=== PATIENT | female | born 1945 | race Two or more races ===

== ENCOUNTER 2024-08-09 16:48 | Emergency (ER) | payer MEDICARE, OTHER, SELFPAY ==
[2024-08-09 17:19] VITALS: BP 102/61; PULSE 74; RESP 19; TEMP 36.6; O2SAT 92
[2024-08-09 17:49] VITALS: PULSE 90; RESP 18; O2SAT 91
[2024-08-09 17:54] VITALS: BMI 37.0
--- NOTE | 2024-08-09 17:57 | EKG_ITS ---
[facility] Test Date: 2024-08-09 Pat Name: ANDREA MERCEDES Department: Room: - Gender: Female Director Strategy: : 1945 Requested By: Yvon Green Order Number: [id number] Reading MD: Yvon Green Measurements Intervals [place] Rate: 81 P: 73 AL: 196 QRS: -2 QRSD: 105 T: 34 QT: 398 QTc: 462 Interpretive Statements SINUS RHYTHM WITH OCCASIONAL SUPRAVENTRICULAR PREMATURE COMPLEXES Compared to ECG 07/10/2024 14:16:51 Myocardial infarct finding no longer present /store/S0/[id number].pdf
--- NOTE | 2024-08-09 17:59 | EDNOTE_ITS ---
ED General RME/HPI General Chief complaint: Altered Mental Status Stated complaint: AMS Time Seen by Provider: 08/09/24 17:48 Arrival date/time: 08/09/24 16:48 RME / HPI RME / HPI narrative: 78-year-old female patient with significant history of liver cirrhosis, hypertension, came in with EMS for evaluation regarding generalized body weakness. Patient's been having worsening generalized body weakness, poor appetite, not eating, not drinking, for the last 3 weeks, getting worst. Today patient was noted to be having dizziness. Patient told me that been taking lisandro seltzer for abdominal discomfort for several days now. Described as burning- like sensation, severity mild. Denies any vomiting. Patient noticed black- colored stool for several days now. Patient was also noted to be having difficulty ambulating due to generalized body weakness for several weeks now. According to the family, patient is needing moderate assist even going to the restroom. Denies any other complaints. No medications taken prior to arrival. Related Data Home Medications ?Medication ?Instructions ?Recorded ?Confirmed lisinopril 10 mg tablet 10 mg PO DAILY 07/10/24 07/10/24 atorvastatin 20 mg tablet 20 mg PO QDAY 07/11/24 07/11/24 cholecalciferol (vitamin D3) 50 50 mcg PO QDAY 07/11/24 07/11/24 mcg (2,000 unit) capsule (Vitamin D3) hydrochlorothiazide 12.5 mg tablet 12.5 mg PO QAM 07/11/24 07/11/24 paroxetine HCl 10 mg tablet 10 mg PO QDAY 07/11/24 07/11/24 vibegron 75 mg tablet (Gemtesa) 75 mg PO QDAY 07/11/24 07/14/24 Previous Rx's ?Medication ?Instructions ?Recorded pantoprazole 40 mg tablet,delayed 40 mg PO QDAY 30 days #30 tabs 07/15/24 release Allergies Allergy/AdvReac Type Severity Reaction Status Date / Time No Known Allergies Allergy Verified 01/02/24 12:05 Review of Systems Review of Systems Narrative Review of Systems: Review of system reviewed and within normal limits except mentioned in HPI ED Exam Narrative Physical exam: VITAL SIGNS: Reviewed. GENERAL APPEARANCE: Alert and interactive, follows commands, no acute distress, HEAD AND FACE: Non-traumatic. ENT: PERRL, pale conjunctiva, eyelid no trauma, Mucous membrane dry NECK: Supple, nontender, no nuchal rigidity. CHEST: No tenderness, no crepitus, no paradoxical movement, no retractions. LUNGS: Clear, well ventilated, symmetric, no rales, no wheezing, no ronchi, no stridor, good breath sounds bilaterally. HEART: Regular rate, regular rhythm, no murmur, no gallops. ABDOMEN: Soft, positive bowel sounds, nondistended, no guarding, nontender, no rebound, no masses, RECTAL: Rectal exam was done by me, and significant dark-colored stool noted on the examining finger, strongly positive occult blood. GENITAL: Deferred. NEUROLOGICAL: Gross motor function intact sensory function intact, Appropriate for age. MUSCULOSKELETAL: low back nontender, full range of motion. EXTREMITIES: Nontender, full range of motion. SKIN: Color pale dry, no rash, no lacerations, no abrasions, no contusions. LYMPHATICS: Deferred. Course Quality Measures none Orders Category Date Time Status EKG (ED ONLY) *Do not use* NOW Care 08/09/24 17:57 Completed Occult Blood,Stool (Nursing) NOW Care 08/09/24 17:57 Active Referral Physical Therapy Stat Cons 08/09/24 20:38 Active EKG (ED Only) Stat Exams 08/09/24 17:57 Draft XR chest 1V Stat Exams 08/09/24 17:59 Completed Ammonia Stat Lab 08/09/24 18:25 Completed CBC Stat Lab 08/09/24 18:25 Completed CMP [Comprehensive Metabolic Panel] Stat Lab 08/31/24 23:09 Ordered Comprehensive Metabolic Panel Stat Lab 08/09/24 18:25 Completed Lactate (Lactic Acid) Stat Lab 08/09/24 18:25 Completed Partial Thromboplastin Time Stat Lab 08/09/24 18:25 Completed Prothrombin Time with INR Stat Lab 08/09/24 18:25 Completed Type and Screen Stat Lab 08/09/24 18:25 Completed Urinalysis Stat Lab 08/09/24 18:06 Completed Octreotide Acet Inj [SandoSTATIN Inj] Med 08/09/24 18:05 Discontinued 50 mcg IV X1 ONE POTASSIUM CHL 10 mEq IVPB [Kcl Ivpb] Med 08/09/24 20:00 Discontinued 10 meq in 100 ml IV X1 Pantoprazole Inj [Protonix Inj] Med 08/09/24 17:58 Discontinued 80 mg IV X1 ONE Potassium Chloride [K-Dur] Med 08/09/24 19:59 Discontinued 40 meq PO X1 ONE Potassium Chloride [K-Dur] Med 08/09/24 23:09 Discontinued 40 meq PO X1 ONE Sodium Chloride 0.9% [Ns] 100 ml Med 08/09/24 18:05 Active Octreotide Acet Inj [SandoSTATIN Inj] 1,000 mcg IV 50 mcg/hr Referral [facility] Curler NOW 08/09/24 20:38 Active Vital Signs Vital signs: Vital Signs Temperature 97.9 F 08/09/24 17:19 Pulse Rate 74 08/09/24 17:19 Respiratory Rate 19 08/09/24 17:19 Blood Pressure 102/61 08/09/24 17:19 Pulse Oximetry (%) 92 L 08/09/24 17:19 Oxygen Delivery Method Nasal Cannula 08/09/24 17:19 [facility] Patient data External records reviewed:: None Clinical information provided by:: none Social determinants that could affect healthcare access:: none Patient has the following chronic illnesses:: Liver cirrhosis, history of upper GI bleed How is presenting disease/condition affected by chronic disease/condition?: e xacerbated by Evaluation data The following diagnostics were reviewed and interpreted by me:: lab results and radiology exam(s) Lab and/or radiology exams considered but not ordered:: None Interpretation Summary: Patient's workup today is significant for potassium 2.6, chloride 96 hemoglobin today was noted to be normal which is 12.8 and hematocrit of 36.8. Platelet 123. Rectal exam was done by me, and tested positive for occult blood. Total bili was noted to be 4.6 AST of 51 alkaline phos of 136. Urinalysis no UTI. I personally reviewed and interpreted the x-ray of this patient. There is no acute abnormalities found, no infiltrates no pneumothorax no hemothorax normal chest x-ray. Review of other structures was without significant abnormal findings also. I additionally reviewed the radiologist report and agree with the interpretation. EKG showed normal sinus rhythm, ventricular rate of 81 bpm, No ST segment elevation depression noted. Medications Medications considered but not ordered:: Plan Medication administrations:: Medication Administration History Octreotide Acetate 1,000 mcg/ (Sodium Chloride) 102 mls @ 5.1 mls/hr IV .Q20H ONE; Protocol Stop: 08/10/24 14:04 Last Admin: 08/09/24 18:31 Dose: 50 mcg/hr, 5.1 mls/hr Documented By: TM Discontinued Medications Potassium Chloride (Kcl Ivpb) 10 meq in 100 mls @ 100 mls/hr IV X1 ONE Stop: 08/09/24 20:59 Last Infusion: 08/09/24 22:35 Dose: Infused Documented By: Admin: 08/09/24 20:30 Dose: 100 mls/hr Documented By: EE Octreotide Acetate (Octreotide Acet Inj 50 Mcg/Ml Vial) 50 mcg IV X1 ONE Stop: 08/09/24 18:06 Last Admin: 08/09/24 18:30 Dose: 50 mcg Documented By: TM Pantoprazole Sodium (Pantoprazole Inj 40 Mg Vial) 80 mg IV X1 ONE Stop: 08/09/24 17:59 Last Admin: 08/09/24 18:06 Dose: 80 mg Documented By: TM Potassium Chloride (Potassium Chloride 20 Meq Tabcr) 40 meq PO X1 ONE Stop: 08/09/24 20:00 Last Admin: 08/09/24 20:11 Dose: 40 meq Documented By: EE Potassium Chloride (Potassium Chloride 20 Meq Tabcr) 40 meq PO X1 ONE Stop: 08/09/24 23:10 Potassium replacement, Sandostatin IV and IV drip and Protonix IV Consultations Consultation(s) initiated? (list below): Yes Consultation #1 (Physician, Specialty, Details): Discussed the case with Dr. Morales, GI specialist on-call, and patient is okay to be discharged home. Diagnosis Differential Diagnosis ED Complaint MDM: Upper GI bleed, generalized body weakness, hypokalemia, liver cirrhosis Most likely diagnosis given after review of the tests above:: Generalized body weakness, hypokalemia, liver cirrhosis Admission Indicated Admission indicated?: not indicated Explain why admission is indicated or not indicated:: Pending final disposition Admission Request Was there a request for admission?: No Disposition Plan Disposition Plan: other (specify) Discharge Attestation Discharge Attestation: Pending final disposition Medical Decision Making MDM Narrative MDM Narrative: Spoke with Dr. Morales, discussed the case, told me that patient is okay to be discharged home after potassium will be replaced. Follow-up closely with PCP and follow-up with him also in the clinic. Plan of care discussed with the family, and patient, and told me that they wanted to go to acute rehab hospital for rehabilitation since patient have difficulty ambulating even going to the toilet. Patient will be referred to protective services social worker in the morning for possible placement to acute rehab hospital. Care transferred to Dr. Cárdenas at 11:15 PM for final disposition. Differential Diagnosis Differential Diagnosis: Upper GI bleed, generalized body weakness, hypokalemia, liver cirrhosis Lab Data 08/09/24 18:25 08/09/24 18:25 Labs: Lab Results 08/09/24 08/09/24 Range/Units 18:06 18:25 WBC 7.0 (3.6-11.0) Thou/mm3 RBC 3.60 L (4.00-5.20) Miln/mm3 Hgb 12.8 (12.0-16.0) g/dL Hct 36.8 (36.0-46.0) % MCV 102 H (80-100) fL MCH 35.6 H (25.0-35.0) pg MCHC 34.8 (31.0-37.0) g/dl RDW Std Deviation 63.2 H (36.4-46.3) fL Plt Count 123 L (140-440) Thou/mm3 Neut % (Auto) 66 (37-80) % Lymph % (Auto) 26 (10-50) % [place] % (Auto) 8 (0-12) % Eos % (Auto) 0 (0-10) % Baso % (Auto) 0 (0-2.5) % Neut # (Auto) 4.6 (1.8-7.7) Thou/mm3 Lymph # (Auto) 1.8 (1.0-4.8) Thou/mm3 [place] # (Auto) 0.5 (0.0-0.8) Thou/mm3 Eos # (Auto) 0.0 (0.0-0.5) Thou/mm3 Baso # (Auto) 0.0 (0.0-0.2) Thou/mm3 Immature Gran # (Auto) 0.04 H (0.00-0.00) Thou/mm3 Absolute Nucleated RBC 0.02 H (0.00-0.00) Thou/mm3 Immature Gran % 1 H (0-0) % Nucleated RBC % 0 (0) /100 WBC PT 12.9 H (9.0-12.2) Seconds INR 1.2 (0.9-1.3) APTT 32.5 (22.0-36.0) Seconds Sodium 139 (136-145) mMol/L Potassium 2.6 L* (3.4-5.1) mMol/L Chloride 96 L (98-107) mMol/L Carbon Dioxide 35.9 H (20.0-31.0) mMol/L Anion Gap 7 (7-16) BUN 18 (9-23) mg/dL Creatinine 0.8 (0.6-1.3) mg/dL Estim Creat Clear Calc 57.4 L (>60) mL/min eGFR > 60 (60 - ) See Note BUN/Creatinine Ratio 23 H (12-20) Ratio Glucose 99 (74-106) mg/dL Calculated Osmolality 279 (275-295) Lactic Acid 1.8 (0.4-2.0) mMol/L Calcium 8.0 L (8.3-10.6) mg/dL Corrected Calcium 8.7 (8.5-10.1) mg/dL Total Bilirubin 4.6 H (0.3-1.2) mg/dL AST 51 H (0-34) U/L ALT 19 (10-49) U/L Alkaline Phosphatase 136 H (46-116) U/L Ammonia 18 (11-32) uMol/L Total Protein 7.0 (5.7-8.2) gm/dL Albumin 3.1 L (3.4-4.8) gm/dL Globulin 3.9 H (2.3-3.5) gm/dL Albumin/Globulin Ratio 0.8 L (1.2-2.2) Ur Collection Type Clean Catch Urine Color Drk-Yellow A (Lt Yel-Yel) Urine Clarity Clear (Clear/Hazy) Urine pH 6.0 (5.0-7.0) Ur Specific [place] 1.033 (1.001-1.035) Urine Protein 1+ A (Neg - Trace) Urine Glucose (UA) Trace (Negative) Urine Ketones Trace (Negative) Urine Blood Negative (Negative) Urine Nitrite Negative (Negative) Urine Bilirubin 2+ A (Negative) Urine Urobilinogen (Auto) 8.0 (0.0-1.0) mg/dL Ur Leukocyte Esterase Negative (Negative) Urine RBC 5 H (0-3) /hpf Urine WBC 2 (0-5) /hpf Ur Squamous Epith Cells 2 (0-5) /hpf Urine Bacteria None (None) Blood Type O Positive Antibody Screen NEGATIVE Blood Bank Wristband ID Yes Discharge Plan Prescriptions/Referrals Prescriptions/Med Rec: No Action lisinopril 10 mg tablet 10 mg PO DAILY hydrochlorothiazide 12.5 mg Tablet 12.5 mg PO QAM paroxetine HCl 10 mg Tablet 10 mg PO QDAY atorvastatin 20 mg Tablet 20 mg PO QDAY cholecalciferol (vitamin D3) [Vitamin D3] 50 mcg (2,000 unit) Capsule 50 mcg PO QDAY Gemtesa 75 mg Tablet 75 mg PO QDAY pantoprazole 40 mg tablet,delayed release (DR/EC) 40 mg PO QDAY 30 Days Qty: 30 0RF Referrals: Ankur Meehan NP [Primary Care Provider] - In 1 week Problem List Clinical Impression: Weakness generalized, Cirrhosis of liver, Acute hypokalemia Patient/Caregiver Discharge Instructions Print Language: Lebanese
--- NOTE | 2024-08-09 17:59 | XR_ITS ---
Examination: AP chest single view TECHNIQUE: AP portable semiupright chest single view Exam date and time: August 09, 2024 1810 hours INDICATIONS: Altered mental status today. FINDINGS: Normal heart size Reduced inspiratory effort Mild to moderate elevation right hemidiaphragm No aspiration pneumonia Osseous structures are intact IMPRESSION: No aspiration pneumonia
[2024-08-09] MEDS: PANTOPRAZOLE INJ 40 MG VIAL 80 MG IV (18:06)
[2024-08-09] MEDS: OCTREOTIDE ACET INJ 50 mCg/ML VIAL IV (18:30)
[2024-08-09 18:31] VITALS: BP 108/62; PULSE 72; RESP 16; TEMP 36.7; O2SAT 93
[2024-08-09] MEDS: OCTREOTIDE ACET INJ 1,000 MCG in SODIUM CHLORIDE 0.9% 100 ML 5.1 MCG IV (18:31)
[2024-08-09 18:32] LABS: Collection Type, Urine Clean Catch
[2024-08-09 18:33] LABS: Lactate (Lactic Acid) 1.8 mMol/L (0.4-2.0)
[2024-08-09 18:53] LABS: Basophils % (Auto) 0 % (0-2.5); Eosinophils % (Auto) 0 % (0-10); Hematocrit 36.8 % (36.0-46.0); Hemoglobin 12.8 g/dL (12.0-16.0); Immature Granulocytes % (Auto) 1 % (0-0); Immature Granulocytes Auto 0.04 Thou/mm3 (0.00-0.00); Lymphocytes # (Auto) 1.8 Thou/mm3 (1.0-4.8); Lymphocytes % (Auto) 26 % (10-50); Mean Corpuscular HGB Conc 34.8 g/dl (31.0-37.0); Mean Corpuscular Hemoglobin 35.6 pg (25.0-35.0); Mean Corpuscular Volume 102 fL (80-100); Monocytes # (Auto) 0.5 Thou/mm3 (0.0-0.8); Monocytes % (Auto) 8 % (0-12); Neutrophils # (Auto) 4.6 Thou/mm3 (1.8-7.7); Neutrophils % (Auto) 66 % (37-80); Nucleated Red Blood Cell # 0.02 Thou/mm3 (0.00-0.00); Nucleated Red Blood Cell % 0 /100 WBC (0); Platelet Count 123 Thou/mm3 (140-440); RDW Standard Deviation 63.2 fL (36.4-46.3)
[2024-08-09 18:57] LABS: Bilirubin,Urine 2+ (Negative); Blood,Urine Negative (Negative); Clarity,Urine Clear (Clear/Hazy); Color,Urine Drk-Yellow (Lt Yel-Yel); Glucose, Urine Trace (Negative); Ketones,Urine Trace (Negative); Leukocyte Esterase,Urine Negative (Negative); Nitrite,Urine Negative (Negative); Protein,Urine 1+ (Neg - Trace); RBC,Urine 5 /hpf (0-3); Specific Gravity,Urine 1.033 (1.001-1.035); Squamous Epithelial Cell,Urine 2 /hpf (0-5); WBC,Urine 2 /hpf (0-5)
[2024-08-09 19:00] LABS: INR 1.2 (0.9-1.3); Partial Thromboplastin Time 32.5 Seconds (22.0-36.0); Prothrombin Time 12.9 Seconds (9.0-12.2)
[2024-08-09 19:01] LABS: Ammonia 18 uMol/L (11-32)
--- NOTE | 2024-08-09 19:15 | PC.NURSE ---
ASSUMED CARE OF PT AT THIS TIME. INTRODUCED SELF TO PT AND DAUGHTER AT BEDSIDE. PT TO THE ER WITH C/O INCREASED WEAKNESS AND DECREASE APPETITE. PT IS A/OX3 GCS 14. PT UPDATED ON PLAN OF CARE. PT CARE ONGOING. CALL LIGHT WITHIN REACH. PT IN NAD.
[2024-08-09 19:31] LABS: Alanine Aminotransferase 19 U/L (10-49); Albumin, Serum 3.1 gm/dL (3.4-4.8); Albumin/Globulin Ratio 0.8 (1.2-2.2); Alkaline Phosphatase 136 U/L (46-116); Anion Gap 7 (7-16); Aspartate Amino Transferase 51 U/L (0-34); BUN/Creatinine Ratio 23 Ratio (12-20); Bilirubin,Total 4.6 mg/dL (0.3-1.2); Blood Urea Nitrogen 18 mg/dL (9-23); Calcium (Corrected) 8.7 mg/dL (8.5-10.1); Carbon Dioxide 35.9 mMol/L (20.0-31.0); Chloride 96 mMol/L (98-107); Creatinine (Component) 0.8 mg/dL (0.6-1.3); Estimated Creatinine Clearance 57.4 mL/min (>60); Globulin 3.9 gm/dL (2.3-3.5); Glucose 99 mg/dL (74-106); Osmolality,Calculated 279 (275-295); Sodium 139 mMol/L (136-145); eGFR > 60 See Note
[2024-08-09 19:47] LABS: Potassium 2.6 mMol/L (3.4-5.1)
[2024-08-09] MEDS: POTASSIUM CHLORIDE 20 mEq TABCR 40 MEQ PO ×2 (20:11→23:35)
[2024-08-09] MEDS: POTASSIUM CHL 10 mEq IVPB 10 MEQ/100 ML BAG 100 MEQ IV (20:30)
[2024-08-09 21:00] VITALS: BP 112/62; PULSE 82; RESP 18; O2SAT 98
[2024-08-09 22:46] VITALS: BP 97/60; PULSE 91; RESP 18; TEMP 36.8; O2SAT 98
--- NOTE | 2024-08-09 23:00 | PC.NURSE ---
PT ASLEEP IN GURNEY, PT IN NAD RESPIRATION EVEN AND UNLABORED. CALL LIGHT WITHIN REACH.
[2024-08-10] VITALS (8 sets, daily range): BP systolic 90–116; BP diastolic 55–68; PULSE 76–87; RESP 18–23; TEMP 36.6–37.1; O2SAT 94–99
--- NOTE | 2024-08-10 00:37 | EDNOTE_ITS ---
Emergency Room Addendum Addendum Narrative: 2300: Care assumed from Yvon Green NP. Past medical, surgical, social and family history reviewed. Vitals and home medications reviewed. Results and treatment plan discussed. I will assume the care of the patient at this time and will follow the patient, pending socal services/SNF placement. Please refer to the emergency department record for history and examination from initial visit OBSERVATION NOTE: The patient was placed in ED observation care at 08/09/2024 at 2300 hours. The patient was placed in ED observation care because of pending social worker delinquency prevention in the morning. The patients past medical history, social history, and family history were reviewed. The plan of care will include serial examinations. Patient has remained clinically stable while under my care. 0600: Care signed out to the next oncoming provider. Past medical, surgical, social and family history reviewed. Vitals and home medications reviewed. Results and treatment plan discussed. They will assume the care of the patient at this time and will follow the patient, pending social worker delinquency prevention consultation for SNF placement
--- NOTE | 2024-08-10 04:00 | PC.NURSE ---
@0400: IN TO REASSESS PT NOTED TO SLEEPING AND HAVING BLOOD ON OVER GOWN. PT STATED IV WAS BOTHERING HER SO SHE PULLED IT OUT . PT LINEN GOWN CHANGED. PT ALSO PROVIDED WITH CLEAN BRIEF.
[2024-08-10 07:42] LABS: Alanine Aminotransferase 17 U/L (10-49); Albumin, Serum 2.7 gm/dL (3.4-4.8); Albumin/Globulin Ratio 0.8 (1.2-2.2); Alkaline Phosphatase 124 U/L (46-116); Anion Gap 8 (7-16); Aspartate Amino Transferase 47 U/L (0-34); BUN/Creatinine Ratio 23 Ratio (12-20); Bilirubin,Total 3.8 mg/dL (0.3-1.2); Blood Urea Nitrogen 18 mg/dL (9-23); Calcium 7.8 mg/dL (8.3-10.6); Calcium (Corrected) 8.8 mg/dL (8.5-10.1); Carbon Dioxide 31.8 mMol/L (20.0-31.0); Chloride 100 mMol/L (98-107); Creatinine (Component) 0.8 mg/dL (0.6-1.3); Estimated Creatinine Clearance 57.4 mL/min (>60); Globulin 3.6 gm/dL (2.3-3.5); Glucose 116 mg/dL (74-106); Osmolality,Calculated 282 (275-295); Potassium 2.9 mMol/L (3.4-5.1); Sodium 140 mMol/L (136-145); Total Protein 6.3 gm/dL (5.7-8.2); eGFR > 60 See Note
--- NOTE | 2024-08-10 07:45 | PC.CC ---
JUANIWLeanna was consulted for referral to SNF placement for patient. ASW informed patient that referral will be sent for SNF and will let them know which one accepts.
--- NOTE | 2024-08-10 08:00 | PC.NURSE ---
In to assess pt. Pt resting quietly at this time without any complaints. Pending social service eval at this time. Family at bedside, plan of care ongoing.
--- NOTE | 2024-08-10 08:26 | PC.CC ---
ASW, spoke to Bunny patient's grandson and informed him that [facility] had accepted the patient. Patient's grandson is okay with patient going to [facility]. ASW to schedule transportation.
--- NOTE | 2024-08-10 08:40 | PC.CC ---
ASW, spoke to patient's daughter Ankur who reports they had a change of mind and do not want the patient to go to [facility] and would like her to go to [facility]. ASW resent referral and made contact with [facility] waiting for a call back.
--- NOTE | 2024-08-10 09:00 | PC.NURSE ---
breakfast tray provided.
--- NOTE | 2024-08-10 13:21 | EDNOTE_ITS ---
Emergency Room Addendum <Laura Fields - Last Filed: 08/10/24 17:29> Addendum Narrative: 0600: Care assumed from Dr. Cárdenas, the previous shift emergency physician. Past medical, surgical, social and family history reviewed. Vitals and home medications reviewed. I will assume the care of the patient at this time, pending social science instructor consultation for SNF placement. Please refer to the emergency department record for history and examination from initial visit.? EMS notes reviewed by me. Nursing notes reviewed by me. Vital signs reviewed by me. [facility] medical records reviewed by me. I reviewed admission from 07/10/2024 through 07/15/2024 for hypotension. 1725: Notified by HENRY Ram that the patient has been accepted at [facility]. States the daughter will transport the patient to the facility. <Amanuel Santana MD - Last Filed: 08/10/24 17:35> Addendum Narrative: 0600: Care assumed from Dr. Cárdenas, the previous shift emergency physician. Past medical, surgical, social and family history reviewed. Vitals and home medications reviewed. I will assume the care of the patient at this time, pending social science instructor consultation for SNF placement. Please refer to the emergency department record for history and examination from initial visit.? EMS notes reviewed by me. Nursing notes reviewed by me. Vital signs reviewed by me. [facility] medical records reviewed by me. I reviewed admission from 07/10/2024 through 07/15/2024 for hypotension. 1:20 PM, I gave the patient another dose of potassium 40 mill equivalent by mouth. Because the potassium level was at 2.9 at 6:00 this morning. 1725: Notified by HENRY Ram that the patient has been accepted at [facility]. States the daughter will transport the patient to the facility. Condition: Stable to be DC and transferred to [facility] by private vehicle DC instruction: You are being discharged from the ER to be driven by your daughter to the [facility]. Your potassium was a little bit low at 2.9. But you already got some potassium by mouth. it should be okay by now. Follow-up with the [facility] doctor for further evaluation and treatment. Return to the nearest emergency department for any problem.
--- NOTE | 2024-08-10 13:35 | PC.CC ---
[facility] was able to accept patient. Patient and daughter Ankur made aware. Pending time when the patient can be transferred to [facility].
[2024-08-10] MEDS: POTASSIUM CHLORIDE 20 mEq TABCR 40 MEQ PO (13:37)
--- NOTE | 2024-08-10 13:44 | PC.PT ---
Patient was referred to PT for SNF referral. Patient already has an accepting SNF placement. No need for PT evaluation.
--- NOTE | 2024-08-10 14:15 | PC.CC ---
Lupe with [facility] requested carroll be discharged and transported at 6pm.
== END 2024-08-10 18:22 | disposition skilled nursing facility (03) ==
PROVIDERS: Nurse Practitioner Family; Emergency Provider Emergency Medicine; PCP Nurse Practitioner Family
DX: E87.6 Hypokalemia (principal); K74.60 Unspecified cirrhosis of liver; R41.82 Altered mental status, unspecified; I49.1 Atrial premature depolarization; R26.2 Difficulty in walking, not elsewhere classified; R19.5 Other fecal abnormalities; I10 Essential (primary) hypertension
CPT/HCPCS: 36415; 71045; 80053; 81001; 82140; 83605; 85025; 85610; 85730; 86850; 86900; 86901; 93005; 96365; 96366; 99284; J2354; J2470; J3480; J7050; A9270

== ENCOUNTER 2024-08-19 13:55 | Emergency (ER) | payer MEDICARE, OTHER, SELFPAY ==
[2024-08-19 14:26] VITALS: BP 130/74; PULSE 87; PULSE 88; RESP 18; TEMP 37.6; O2SAT 91; O2SAT 96
--- NOTE | 2024-08-19 14:27 | PC.NURSE ---
Pt. here from [facility] to room 16, per [facility] pt. was sent for poor appetite, abdominal distention, and yellow skin and eyes. Pt. will tell you her name but can not state her birthday. No s/s of distress.
--- NOTE | 2024-08-19 14:54 | XR_ITS ---
Examination: CT abdomen and pelvis without contrast. Coronal 3-D reconstructions. Sagittal 2-D reconstructions. Date and time of exam:August 19, 2024 1515 hrs. Comparison July 12, 2024, July 10, 2024 Indications: Diagnosis cirrhosis with abdominal distention today CTDI: vol (mGy): 14 DLP: (mGycm): 838 Technique: Axial images of the abdomen have been obtained, 3 mm slice thickness Intravenous contrast material has not been administered. Low dose protocols were performed. One or more of the following dose reduction techniques were used; automated exposure control, adjustment of the mA and/or KV according to patient size, use of iterative reconstruction technique. Findings: Significant hepatomegaly, cirrhosis irregular contour of the liver Multiple liver lesions again seen, please see the biopsy examination July 12, 2024 Moderate ascites Absent gallbladder Gastric sutures No pancreatic mass No renal or ureteral calculi, no hydronephrosis Aorta normal size Diffuse thickening of the colonic kent, hepatic colopathy pattern Wall thickening involving small bowel loops, hepatic enteropathy pattern No bowel obstruction No diverticulitis Atrophic uterus Intact urinary bladder Prominent osteopenia Impression: Cirrhosis, significant hepatomegaly, multiple liver lesions Moderate ascites Hepatic colopathy enteropathy, no bowel obstruction
--- NOTE | 2024-08-19 15:11 | PC.NURSE ---
Pt.'s daughter Ankur is bedside, .
--- NOTE | 2024-08-19 15:15 | PC.NURSE ---
Daughter states since pt. has been in [facility] pt. has gone downhill. Daughter states pt. won't eat or drink. Daughter states pt. hasn't walked in about 20 days, daughter states pt. has been refusing to do physical therapy at [facility]. Daughter states the edema to pt.'s neck is new. Pt. is yellow to her abdomen, eyes and mottled to her lower extremities bilateral.
[2024-08-19 15:16] LABS: Basophils % (Auto) 0 % (0-2.5); Eosinophils % (Auto) 0 % (0-10); Hematocrit 39.7 % (36.0-46.0); Hemoglobin 13.6 g/dL (12.0-16.0); Immature Granulocytes % (Auto) 1 % (0-0); Immature Granulocytes Auto 0.08 Thou/mm3 (0.00-0.00); Lymphocytes # (Auto) 1.4 Thou/mm3 (1.0-4.8); Lymphocytes % (Auto) 15 % (10-50); Mean Corpuscular HGB Conc 34.3 g/dl (31.0-37.0); Mean Corpuscular Hemoglobin 35.5 pg (25.0-35.0); Mean Corpuscular Volume 104 fL (80-100); Monocytes # (Auto) 0.5 Thou/mm3 (0.0-0.8); Monocytes % (Auto) 5 % (0-12); Neutrophils # (Auto) 7.4 Thou/mm3 (1.8-7.7); Neutrophils % (Auto) 79 % (37-80); Nucleated Red Blood Cell # 0.14 Thou/mm3 (0.00-0.00); Nucleated Red Blood Cell % 2 /100 WBC (0); Platelet Count 92 Thou/mm3 (140-440); RDW Standard Deviation 68.5 fL (36.4-46.3); Red Blood Count 3.83 Miln/mm3 (4.00-5.20); White Blood Count 9.3 Thou/mm3 (3.6-11.0)
--- NOTE | 2024-08-19 15:28 | EDNOTE_ITS ---
ED Abdominal Pain RME/HPI General Chief Complaint: Abdominal Pain Stated complaint: ABD DISTENDED Time seen by provider: 08/19/24 14:40 Arrival date/time: 08/19/24 13:55 RME / HPI RME / HPI narrative: Clinical Summary: This patient is a known case of liver cirrhosis and presents with abdominal distention and yellow discoloration of the skin (jaundice). She has bitemporal wasting (indicative of malnutrition or muscle wasting) and lower extremity edema , more prominent on the right side. Her abdomen is distended but soft, without significant ascites or tenderness, suggesting that there is no acute peritonitis or need for immediate paracentesis. At the time of evaluation, the patient has no active complaints, and her POLST (Physician Orders for Life-Sustaining Treatment) indicates that she is full treatment. [place] Findings: * Abdominal distention: This is concerning for potential ascites, a common complication of cirrhosis, though it's not significant enough at this point to necessitate paracentesis. * Jaundice (icterus): Indicates bilirubin accumulation, which could be from hepatic dysfunction or biliary obstruction. * Bitemporal wasting: Suggestive of malnutrition or muscle catabolism, which is common in cirrhotic patients due to reduced hepatic synthesis of proteins and poor nutritional intake. * Lower extremity edema: Can be due to portal hypertension leading to ascitic fluid accumulation in the abdomen and lower extremities, or due to hypoalbuminemia caused by impaired liver function. Differential Diagnosis: * Cirrhosis-Related Complications: * Portal Hypertension: Likely the cause of the edema and ascites. Cirrhosis results in increased resistance to blood flow through the liver, leading to the development of portal hypertension. This can cause fluid to accumulate in the abdomen (ascites) and lower extremities (edema). * Hepatic Encephalopathy: Not specifically noted in the HPI, but cirrhosis patients are at risk for hepatic encephalopathy due to the liver's inability to detoxify ammonia. The patient?s absence of complaints and normal mental status suggests this is not the current issue. * Jaundice: Likely due to cholestasis or hepatocellular injury, which is common in cirrhosis. The jaundice could also be exacerbated by bilirubin buildup from the liver's inability to process it effectively. * Malnutrition/Cachexia: * The bitemporal wasting suggests malnutrition, often seen in cirrhotic patients due to poor dietary intake, altered digestion, and protein metabolism. Cirrhosis can impair the liver's ability to synthesize proteins (like albumin), contributing to edema and muscle wasting. * Acute Hepatic Decompensation: * Even though the patient is not currently experiencing significant complaints, decompensated cirrhosis can manifest insidiously with abdominal distention, edema, and jaundice as signs of liver failure. * Biliary Obstruction: * In patients with cirrhosis, a biliary obstruction could lead to jaundice, though this is less likely without associated symptoms like pruritus or steatorrhea. It is also important to consider a choledocholithiasis (common bile duct stone) or cholangiocarcinoma as potential causes. * Cardiac Causes of Edema: * Right-sided heart failure could cause leg edema and abdominal distention (ascites), but the patient?s liver cirrhosis makes portal hypertension a more likely cause for the symptoms. If there is concern for heart failure, a BNP (brain natriuretic peptide) and echocardiogram could help clarify. Management and Next Steps: * Initial Supportive Care: * Ensure the patient?s electrolyte balance is maintained (especially sodium and potassium) and fluid status is monitored closely, particularly given her edema and potential ascites. * Albumin supplementation may be necessary if hypoalbuminemia is contributing to her edema. * Work-Up: * Liver function tests (LFTs): Check bilirubin, ALT, AST, alkaline phosphatase, and albumin to assess the extent of liver damage and bile flow obstruction. * Coagulation profile: As cirrhosis often leads to impaired synthesis of clotting factors, a PT/INR and aPTT should be checked to assess the patient's risk of bleeding. * Renal function tests: Monitor creatinine and BUN, as cirrhosis can lead to hepatorenal syndrome (a type of kidney failure associated with liver cirrhosis). * Abdominal ultrasound: To assess the presence of ascites, liver architecture, and check for any evidence of portal hypertension (e.g., splenomegaly or varices), biliary obstruction, or hepatocellular carcinoma. * Ascitic fluid analysis: If ascites becomes more pronounced or the patient develops symptoms, performing a paracentesis and analyzing the ascitic fluid (looking for infection or malignancy) would be important. * Ascites Management: * If ascites is confirmed and symptomatic, consider salt restriction, diuretics (e.g., spironolactone and furosemide), and possible paracentesis if the fluid becomes tense or causing respiratory compromise. * Nutritional Support: * Given the bitemporal wasting, it would be important to initiate or optimize nutritional support to address potential malnutrition and prevent further muscle wasting. * Follow-Up and Management: * Follow up with gastroenterology for ongoing management of her cirrhosis. Consider liver transplant evaluation if her cirrhosis progresses or becomes decompensated. * POLST Review: * Given the patient?s POLST (full treatment) designation, aggressive supportive measures and treatment options should be pursued, including managing complications of cirrhosis (e.g., ascites, encephalopathy) if they arise. Conclusion: This patient with cirrhosis is presenting with abdominal distention, jaundice, and lower extremity edema, which are indicative of portal hypertension and hepatic dysfunction. The absence of significant ascites or tenderness suggests a more stable phase of liver decompensation, but close monitoring and further workup (including imaging and lab tests) are necessary to assess her liver function, manage ascites, and prevent further complications. Nutrition and symptomatic management (including diuretics and albumin) are essential. Related Data Home Medications ?Medication ?Instructions ?Recorded ?Confirmed lisinopril 10 mg tablet 10 mg PO DAILY 07/10/24 07/10/24 atorvastatin 20 mg tablet 20 mg PO QDAY 07/11/24 07/11/24 cholecalciferol (vitamin D3) 50 50 mcg PO QDAY 07/11/24 07/11/24 mcg (2,000 unit) capsule (Vitamin D3) hydrochlorothiazide 12.5 mg tablet 12.5 mg PO QAM 07/11/24 07/11/24 paroxetine HCl 10 mg tablet 10 mg PO QDAY 07/11/24 07/11/24 vibegron 75 mg tablet (Gemtesa) 75 mg PO QDAY 07/11/24 07/14/24 Allergies Allergy/AdvReac Type Severity Reaction Status Date / Time No Known Allergies Allergy Verified 01/02/24 12:05 Course Quality Measures none Orders Category Date Time Status Referral Hospice Stat Cons 08/19/24 19:[address] abdomen pelvis wo con Stat Exams 08/19/24 14:54 Completed Ammonia Stat Lab 08/19/24 15:11 Completed Bilirubin,Direct Stat Lab 08/19/24 15:11 Completed CBC Stat Lab 08/19/24 15:11 Completed CMP [Comprehensive Metabolic Panel] Stat Lab 08/19/24 15:11 Completed PT [Prothrombin Time with INR] Stat Lab 08/19/24 15:11 Completed PTT [Partial Thromboplastin Time] Stat Lab 08/19/24 15:11 Completed UA [Urinalysis] Stat Lab 08/19/24 18:08 Completed Vital Signs Vital signs: Vital Signs Temperature 99.6 F 08/19/24 14:26 Pulse Rate 87 08/19/24 14:26 Respiratory Rate 18 08/19/24 14:26 Blood Pressure 130/74 08/19/24 14:26 Pulse Oximetry (%) 96 08/19/24 14:26 Oxygen Delivery Method Room Air 08/19/24 14:26 Abdominal Pain [facility] Narrative [facility] Narrative:: I had a long conversation with patient's daughter. The patient is cachectic and has severe weight loss changes. She is not a candidate for surgical interventions such as liver transplant. This has been determined in the past as well. IV hydration will not be a permanent solution for her offered and discussed. This will only prolong the patient's low quality and of life. Eventually the patient's daughter said the only which she has for her mother is to be comfortable and pain-free and let the inevitable happen . She is now in agreement to palliative care. This was discussed with Dr Fofana, the patient's primary care provider who will arrange for the palliative care team to meet with them [facility] the [facility]. Dr. Morales is also aware of this and agrees with this approach. 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 Ascites How is presenting disease/condition affected by chronic disease/condition?: caused by Evaluation data The following diagnostics were reviewed and interpreted by me:: lab results and radiology exam(s) Lab and/or radiology exams considered but not ordered:: At the patient's baseline Interpretation Summary: See [facility] Medications / Prescriptions Medications or Prescriptions considered but not ordered:: Not applicable Medication administrations:: Not applicable Consultations Consultation(s) initiated? (list below): No Diagnosis Differential diagnosis abdominal pain: abdominal pain Most likely diagnosis given after review of the tests above:: See medical decision making Admission Indicated Admission indicated?: not indicated Admission Request Was there a request for admission?: No Disposition Plan Disposition Plan: Discharge Discharge Attestation Discharge Attestation: The patient and all family members were given an opportunity to ask questions and understood the discharge instructions. Discharge instructions specifically effects, indications for sooner follow up or return to the emergency department, and the expected course of current diagnosis. Patient condition: Stable Discharge Plan Plan Patient Disposition: Xfer Skilled Nsg Fac (SNF) Patient condition on transfer: Stable Prescriptions/Referrals Prescriptions/Med Rec: No Action lisinopril 10 mg tablet 10 mg PO DAILY hydrochlorothiazide 12.5 mg Tablet 12.5 mg PO QAM paroxetine HCl 10 mg Tablet 10 mg PO QDAY atorvastatin 20 mg Tablet 20 mg PO QDAY cholecalciferol (vitamin D3) [Vitamin D3] 50 mcg (2,000 unit) Capsule 50 mcg PO QDAY Gemtesa 75 mg Tablet 75 mg PO QDAY Referrals: [place] ([facility]),GENET Qiunn [Primary Care Provider] - In 1 week Problem List Clinical Impression: Cirrhosis of liver Patient/Caregiver Discharge Instructions Discharge Activity: activity as tolerated Education Materials: ED Cirrhosis Print Language: Chinese Stand Alone Forms: [facility] Award Info., Patient Portal Info Letter
[2024-08-19 15:40] LABS: INR 1.2 (0.9-1.3); Partial Thromboplastin Time 29.4 Seconds (22.0-36.0)
[2024-08-19 15:50] LABS: Alanine Aminotransferase 28 U/L (10-49); Albumin, Serum 2.8 gm/dL (3.4-4.8); Albumin/Globulin Ratio 0.7 (1.2-2.2); Alkaline Phosphatase 148 U/L (46-116); Ammonia < 10 uMol/L (11-32); Anion Gap 10 (7-16); Aspartate Amino Transferase 57 U/L (0-34); BUN/Creatinine Ratio 29 Ratio (12-20); Bilirubin,Direct 3.7 mg/dL (0.0-0.3); Bilirubin,Total 6.2 mg/dL (0.3-1.2); Blood Urea Nitrogen 26 mg/dL (9-23); Calcium 8.3 mg/dL (8.3-10.6); Calcium (Corrected) 9.3 mg/dL (8.5-10.1); Carbon Dioxide 33.9 mMol/L (20.0-31.0); Chloride 101 mMol/L (98-107); Creatinine (Component) 0.9 mg/dL (0.6-1.3); Globulin 4.3 gm/dL (2.3-3.5); Glucose 119 mg/dL (74-106); Osmolality,Calculated 294 (275-295); Sodium 145 mMol/L (136-145); Total Protein 7.1 gm/dL (5.7-8.2); eGFR > 60 See Note
[2024-08-19 15:53] LABS: Potassium 2.5 mMol/L (3.4-5.1)
[2024-08-19 18:14] LABS: Collection Type, Urine Clean Catch
[2024-08-19 18:15] VITALS: BP 121/73; PULSE 85; RESP 18; TEMP 37.2; O2SAT 92
[2024-08-19 18:24] LABS: Bacteria,Urine 4+; Bilirubin,Urine 2+ (Negative); Blood,Urine 1+ (Negative); Clarity,Urine Turbid (Clear/Hazy); Color,Urine Drk-Yellow (Lt Yel-Yel); Glucose, Urine Negative (Negative); Ketones,Urine Trace (Negative); Leukocyte Esterase,Urine Positive (Negative); Nitrite,Urine Negative (Negative); Protein,Urine 1+ (Neg - Trace); RBC,Urine 8 /hpf (0-3); Specific Gravity,Urine 1.032 (1.001-1.035); Squamous Epithelial Cell,Urine 14 /hpf (0-5); Urobilinogen,Urine OVER mg/dL (0.0-1.0); WBC,Urine 35 /hpf (0-5)
--- NOTE | 2024-08-19 19:20 | PC.NURSE ---
Called [facility] to inform of pt DC and returning to their facility with referral to Hospice. Provided them with [facility] rep information, Rosalia .
--- NOTE | 2024-08-19 19:35 | PC.NURSE ---
CYNTHIA FROM [facility] REQUESTING PACKET FAXED TO HER, PACKET FAXED AT THIS TIME
[2024-08-19 20:02] VITALS: BP 118/61; PULSE 88; RESP 20; O2SAT 96
== END 2024-08-19 20:05 | disposition skilled nursing facility (03) ==
PROVIDERS: Emergency Provider Emergency Medicine; PCP Physician Assistant
DX: K74.60 Unspecified cirrhosis of liver (principal)
CPT/HCPCS: 36415; 74176; 80053; 81001; 82140; 82248; 85025; 85610; 85730; 99284